=== PATIENT | female | born 1940 | race Caucasian/White ===

== ENCOUNTER 2025-04-23 12:11 | Emergency (ER) | payer MEDICARE, SELFPAY ==
[2025-04-23 12:10] VITALS: BP 183/112; PULSE 95; RESP 16; TEMP 36.4; O2SAT 96; BMI 34.3
--- NOTE | 2025-04-23 12:16 | XR_ITS ---
WS: [id number] Exam: XR tibia fibula LT 2V [id number] Date/Time of Exam: 04/23/2025 12:20 PM Reason For Exam: fall No acute fracture. Healed fractures of the lower tibia and proximal fibula. 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 Unremarkable soft tissues. XR/XR tibia fibula LT 2V [id number] IMPRESSION: 1. No acute fracture.
--- NOTE | 2025-04-23 12:16 | XR_ITS ---
WS: [id number] Exam: XR knee LT 3V* [id number] Date/Time of Exam: 04/23/2025 12:20 PM Reason For Exam: fall No acute fracture. Moderately advanced degenerative change with the marked narrowing of the medial compartment. No joint effusion. Unremarkable soft tissues. Old upper fibular fracture that is healed. XR/XR knee LT 3V* [id number] IMPRESSION: 1. Advanced DJD. No acute fracture.
--- NOTE | 2025-04-23 12:21 | CT_ITS ---
WS: [id number] CT HEAD TECHNIQUE: Noncontrast CT of the head obtained from the skullbase to the vertex. CLINICAL INFORMATION: fall COMPARISON: None. DLP: 1255.[address] scans at [facility] use at least one of these dose optimization techniques: automated exposure control; mA and/or kV adjustment per patient size (includes targeted exams where dose is matched to clinical indication); or iterative reconstruction. FINDINGS: No evidence of intracranial hemorrhage or mass effect. Ventricular system and basal cisterns are patent. Mild small vessel changes with mild parenchymal volume loss. No extra-axial fluid collections. No evidence of mass or mass effect. Vascular calcification. Retention cyst RIGHT maxillary sinus. Mucosal thickening ethmoid air cells. Mastoid air cells are well aerated. CT/CT head wo con* [id number] IMPRESSION: 1. No evidence of intracranial hemorrhage or mass effect. 2. No acute intracranial findings.
--- NOTE | 2025-04-23 12:21 | W.ED.EXTPRO ---
HPI - Extremity Problem General: Chief complaint: Extremity Injury, Lower Stated complaint: fall - left knee pain, dizziness Source: patient and EMS Mode of arrival: EMS Limitations: no limitations History of Present Illness: 84-year-old female states that she tripped at [employer] and fell. Patient states she did land on her left knee has left knee pain has some slight pain in the lower leg as well. She is unsure if she hit her head. She denies any pain elsewhere. Related Data Home Medications ?Medication ?Instructions ?Recorded ?Confirmed atenolol 50 mg tablet 50 mg PO BID 04/23/25 04/23/25 ezetimibe 10 mg tablet 10 mg PO DAILY 04/23/25 04/23/25 furosemide 20 mg tablet 20 mg PO DAILY 04/23/25 04/23/25 gabapentin 600 mg tablet 600 mg PO TID 04/23/25 04/23/25 hydralazine 50 mg tablet 50 mg PO TID 04/23/25 04/23/25 irbesartan 300 mg tablet 150 mg PO BID 04/23/25 04/23/25 omeprazole 20 mg capsule,delayed 20 mg PO DAILY 04/23/25 04/23/25 release ropinirole 1 mg tablet 1 - 2 mg PO BID 04/23/25 04/23/25 tizanidine 2 mg tablet 2 mg PO Q8H PRN Spasms 04/23/25 04/23/25 tramadol 50 mg tablet 50 - 100 mg PO Q8H PRN Pain 04/23/25 04/23/25 Allergies Allergy/AdvReac Type Severity Reaction Status Date / Time phenobarbital Allergy Unknown Verified 04/23/25 12:13 [id number] Reductase Allergy Unknown Verified 04/23/25 12:13 Inhibitor Physical Exam Const: COMMON NORMALS: no acute distress, patient oriented x3 and healthy appearing HENMT: COMMON NORMALS: normocephalic and atraumatic HEAD & SCALP: normocephalic and atraumatic Eye: COMMON NORMALS: conjunctivae normal CONJUNCTIVA: Yes conjunctivae normal Neck/C-Spine: COMMON NORMALS: full ROM and supple Chest: COMMONS NORMALS: normal inspection of the chest Resp: COMMON NORMALS: normal respiratory effort Cardio: COMMON NORMALS: regular rate RATE: regular rate Extremity: COMMON NORMALS: full ROM NARRATIVE EXTREMITY EXAM: Tenderness noted left knee no obvious deformity Neuro: COMMON NORMALS: patient oriented x3, moves all extremities and no focal motor deficits Psych: COMMON NORMALS: mental status grossly normal, Normal thought process present and cooperative THOUGHT PROCESS: Normal thought process present Skin: COMMON NORMALS: no rashes or lesions noted and no wounds GENERAL SKIN EXAM: no rashes or lesions noted Course Vital Signs: Vital signs: Vital Signs Temperature 97.6 F 04/23/25 12:10 Pulse Rate 95 04/23/25 12:10 Respiratory Rate 16 04/23/25 12:10 Blood Pressure 183/112 04/23/25 12:10 Pulse Oximetry 96 04/23/25 12:10 Oxygen Delivery Me thod Room Air 04/23/25 12:10 MDM - Extremity (Nontraumatic) Medical Decision Making Patient presents for left knee pain after a fall. Differential includes fracture, contusion, dislocation. X-ray here shows no acute abnormality she has no signs of fracture she is able to weight-bear here. She is stable for discharge at this time follow-up with PCP return if worsening. Medical Records I reviewed the patient's medical records. Lab Data Radiology Impressions Knee X-Ray 04/23/25 12:16 IMPRESSION: 1. Advanced DJD. No acute fracture. Tibia/Fibula X-Ray 04/23/25 12:16 IMPRESSION: 1. No acute fracture. Head CT 04/23/25 12:21 IMPRESSION: 1. No evidence of intracranial hemorrhage or mass effect. 2. No acute intracranial findings. All radiology interpretation(s) finalized by discharge Discharge Plan Discharge Patient Disposition: Home Clinical Impression: Fall, Contusion of left knee Condition: Stable Prescriptions: No Action gabapentin 600 mg tablet 600 mg PO TID ropinirole 1 mg tablet 1 - 2 mg PO BID tizanidine 2 mg tablet 2 mg PO Q8H PRN (Reason: Spasms) tramadol 50 mg tablet 50 - 100 mg PO Q8H PRN (Reason: Pain) omeprazole 20 mg capsule,delayed release(DR/EC) 20 mg PO DAILY hydralazine 50 mg tablet 50 mg PO TID furosemide 20 mg tablet 20 mg PO DAILY atenolol 50 mg tablet 50 mg PO BID irbesartan 300 mg tablet 150 mg PO BID ezetimibe 10 mg tablet 10 mg PO DAILY Discharge Orders: Discharge ED (Routine); Ordered 04/23/25 Ordered By: Karen Underwood Discharge Diet: Advance as tolerated Discharge Activity: Resume usual activity Patient Instructions: Knee Pain (ED) Print Language: Armenian Coding Level of Care Code ED [employer] for Trever [place]
[2025-04-23] MEDS: morphine 4 mg/mL SDV 1 mL IVP (13:46)
[2025-04-23] MEDS: ondansetron 2 mg/ML SDV 2 mL 4 MG IVP (13:46)
[2025-04-23 14:15] VITALS: BP 121/90; PULSE 85; RESP 16; O2SAT 95
== END 2025-04-23 14:15 | disposition home or self-care (01) ==
PROVIDERS: Emergency Provider Emergency Medicine
DX: S80.02XA Contusion of left knee, initial encounter (principal); W01.0XXA Fall on same level from slipping, tripping and stumbling without subsequent striking against object, initial encounter
CPT/HCPCS: 70450; 73562; 73590; 96374; 96375; 99285; J2270; J2405